=== PATIENT | male | born 1995 | race African-American/Black ===

== ENCOUNTER 2020-07-28 01:28 | Emergency (ER) | payer SELFPAY ==
[~2020-07-28] VITALS: Ht 185.4 cm; Wt 59.0 kg
[2020-07-28 01:30] VITALS: BP 146/91; Ht 185.4 cm; Wt 59.0 kg
== END 2020-07-28 02:14 | disposition home or self-care (01) ==
LOC: ED 01:28
DX: R05 Cough (principal); R09.89 Other specified symptoms and signs involving the circulatory and respiratory systems; R11.0 Nausea; Z20.822 Contact with and (suspected) exposure to COVID-19; Z88.8 Allergy status to other drugs, medicaments and biological substances
CPT/HCPCS: U0003